=== PATIENT | male | born 1975 | race Two or more races ===

== ENCOUNTER 2020-07-26 15:52 | Emergency (ER) | payer MEDICAID ==
[~2020-07-26] VITALS: Ht 170.2 cm; Wt 77.1 kg
[~2020-07-26 15:52] MED LIST: NKM; nka
[2020-07-26 16:30] VITALS: BP 120/61
--- NOTE | 2020-07-26 16:53 | Emergency Room Report ---
History of Present Illness General Chief Complaint: Abdominal Pain Source: Patient, EMS Present Illness HPI Patient is a 45-year-old male presents for increased abdominal pain and distention. Gradual onset of symptoms. Reports having last paracentesis approximately 2 months ago. Prior history of chronic liver disease. Reports of increased abdominal pain. Denies any fever. Gradual onset. Allergies: Coded Allergies: No Known Allergies (Unverified , 11/02/12) COVID-19 Screening Contact w/high risk pt: No Experienced COVID-19 symptoms?: No COVID-19 Testing performed [employer]: Yes COVID-19 Screening: Negative COVID-19 COVID-19 Testing Source: i week ago Patient History Past Medical History: see triage record Reviewed Nursing Documentation: PMH: Agreed; PSxH: Agreed Nursing Documentation-PMH Past Medical History: No History, Except For Hx Gastrointestinal Problems: Yes - cirrohsis, ascites Review of Systems All Other Systems: negative except mentioned in HPI Physical Exam Vital Signs Date Time Temp Pulse Resp B/P (MAP) Pulse Ox O2 Delivery O2 Flow Rate FiO2 07/26/20 15:49 98.6 89 20 120/61 (80) 97 Room Air Sp02 EP Interpretation: reviewed, normal General Appearance: normal inspection, well appearing, no apparent distress, alert, GCS 15, non-toxic Head: atraumatic ENT: normal ENT inspection, hearing grossly normal, normal voice Neck: normal inspection, full range of motion, supple, no bony tend Respiratory: normal inspection, lungs clear, normal breath sounds, no r espiratory distress, no retraction, no wheezing Cardiovascular #1: regular rate, rhythm, no edema Gastrointestinal: soft, distended, hernia, other - tense ascitis Genitourinary: no CVA tenderness Musculoskeletal: normal inspection, back normal, normal range of motion Neurologic: alert, motor strength/tone normal, time broker III-XII nml as tested, oriented x3, responsive, speech normal, normal inspection Psychiatric: normal inspection, judgement/insight normal, mood/affect normal Medical Decision Making Diagnostic Impression: Primary Impression: Ascites ER Course Patient presented for abdominal pain. Differential diagnosis include was not limited to pancreatitis, bowel obstruction, coagulopathy, tense ascites, spontaneous bacterial peritonitis among others. Because of complexity of patient's case laboratory tests and imaging studies were ordered. Last Vital Signs Date Time Temp Pulse Resp B/P (MAP) Pulse Ox O2 Delivery O2 Flow Rate FiO2 07/26/20 16:30 98.6 20 120/61 97 Room Air 07/26/20 16:30 89 Referrals: NOT CHOSEN IPA/,REFERRING (PCP) Raheem Bell MD Jul 26, 2020 16:53
[2020-07-26 17:06] LABS: ANION GAP 12 mmol/L (5-15); BLOOD UREA NITROGEN 3 mg/dL (7-18); CALCIUM 7.9 MG/DL (8.5-10.1); CARBON DIOXIDE 21 MMOL/L (21-32); CHLORIDE 106 MMOL/L (98-107); CREATININE 1.1 MG/DL (0.55-1.30); POTASSIUM 3.6 MMOL/L (3.5-5.1); SODIUM 139 MMOL/L (136-145)
[2020-07-26 17:23] LABS: BASOPHILS % (AUTO) 1.5 % (0.0-2.0); EOSINOPHILS % (AUTO) 3.1 % (0.0-3.0); HEMATOCRIT 25.6 % (42.0-52.0); HEMOGLOBIN 8.2 G/DL (14.2-18.0); LYMPHOCYTES % (AUTO) 16.6 % (20.0-45.0); MEAN CORPUSCULAR VOLUME 80 FL (80-99); MONOCYTES % (AUTO) 12.4 % (1.0-10.0); NEUTROPHILS % (AUTO) 66.4 % (45.0-75.0); PLATELET COUNT 116 K/UL (150-450); RED CELL DISTRIBUTION WIDTH 18.8 % (11.6-14.8); WHITE BLOOD COUNT 6.1 K/UL (4.8-10.8)
[2020-07-26 17:24] LABS: ALANINE AMINOTRANSFERASE 27 U/L (12-78); ALBUMIN 2.6 G/DL (3.4-5.0); ALBUMIN/GLOBULIN RATIO 0.6 (1.0-2.7); ALKALINE PHOSPHATASE 121 U/L (46-116); ASPARTATE AMINO TRANSFERASE 41 U/L (15-37); BILIRUBIN,TOTAL 1.8 MG/DL (0.2-1.0)
[2020-07-26 17:27] LABS: BILIRUBIN,DIRECT 0.7 MG/DL (0.0-0.3)
[2020-07-26 17:54] LABS: INR 1.4 (0.9-1.1)
[2020-07-26] MEDS ORDERED: Lidocaine 1% Plain 30 ml INJ ONE ×2 (18:27→18:45)
[2020-07-26 18:29] VITALS: BP 126/80
[2020-07-26 19:55] VITALS: BP 121/84
[2020-07-26] MEDS ORDERED: OMEPRAZOLE20 M2 ORAL (20:44)
[2020-07-26] MEDS ORDERED: FERROUS SULFAT325 MG ORAL (20:44)
[2020-07-26 21:10] VITALS: BP 124/85
== END 2020-07-26 21:10 | disposition home or self-care (01) ==
LOC: EDBD 15:52 → EMR 16:05
DX: R18.8 Other ascites (principal); K74.60 Unspecified cirrhosis of liver
CPT/HCPCS: 36415; 80053; 82248; 83690; 85025; 85610; 85730; 87070; 87205; 89051; G0480; J2001; Z7502; 99284